=== PATIENT | female | born 1955 | race Caucasian/White ===

== ENCOUNTER 2020-07-06 12:53 | Outpatient (CLI) | payer OTHER, MEDICARE, SELFPAY ==
--- NOTE | 2020-07-06 13:03 | XR_ITS ---
WS: [id number] SCREENING DEXA SCAN [address] [employer] CLINICAL INFORMATION: AGE RELATED OSTEOPOROSIS WITHOUT CURRENT PATHOLOGICAL FRACTU COMPARISON: None. FINDINGS: The L1-L4 bone mineral density measures 1.023 g/cm2. This corresponds to a T score score of -1.3 and Z score of -0.3. Left femoral neck bone mineral density measures 0.868 g/cm2. This corresponds to a T score of -1.1 an d Z score of -0.3. Right femoral neck bone mineral density measures 0.967 g/cm2. This corresponds to a T score -0.3of an d Z score of 0.4. Mean femoral neck bone mineral density measures 0.917 g/cm2. This corresponds to a T score of -0.7 an d Z score of 0.0. XR/XR DEXA peripheral [id number] IMPRESSION: Osteopenia Patient's FRAX calculated 10 year probability for major osteoporotic fracture i s 17.0 % and osteoporotic hip fracture is 2.5%.
--- NOTE | 2020-07-06 13:38 | MM_ITS ---
WS: [id number] BILATERAL SCREENING DIGITAL MAMMOGRAM WITH CAD HISTORY: SCREENING COMPARISON: 08/26/2012 and 06/14/2010 Bilateral CC and MLO views submitted. Computer aided detection analyzed. Breast composition: The breasts are heterogeneously dense, which may obscure small masses. Linear are a of increasing density in the central LEFT breast. No calcifications. No distortion. MM/[place] [id number] IMPRESSION: BI-RADS: 0-Incomplete: Need additional imaging evaluation FOLLOW UP: Need Additional Imaging LEFT breast: Spot compression views (CC and MLO). True ML. Ultrasound to follow if abnormality persists.
== END 2020-07-06 12:54 | disposition home or self-care (01) ==
PROVIDERS: PCP Nurse Practitioner Family; Visit Provider Nurse Practitioner Family
DX: Z12.31 Encounter for screening mammogram for malignant neoplasm of breast (principal); M81.0 Age-related osteoporosis without current pathological fracture; N63.20 Unspecified lump in the left breast, unspecified quadrant; M85.88 Other specified disorders of bone density and structure, other site
CPT/HCPCS: 77067; 77081

== ENCOUNTER 2020-07-27 12:21 | Outpatient (CLI) | payer OTHER, MEDICARE, SELFPAY ==
--- NOTE | 2020-07-27 12:25 | US_ITS ---
WS: [id number] ADDITIONAL VIEWS LEFT MAMMOGRAM LEFT BREAST ULTRASOUND HISTORY: ABNORMAL mammogram COMPARISON: 07/06/2020 and 08/26/2012 LEFT MAMMOGRAM: Spot compression views and true ML. On the CC projection asymmetry resolves. On the lateral projections there is an ovoid nodule measurin g 8 mm central and just above the nipple line. LEFT BREAST ULTRASOUND 2-D and color Doppler imaging submitted. No mass identified by ultrasound. Dense fibroglandular tissue corresponds to the findings on the mamm ogram. US/US breast LT limited* [id number] IMPRESSION: BI-RADS: 2-Benign FOLLOW UP: 1 Year Follow-up
== END 2020-07-27 12:22 | disposition home or self-care (01) ==
LOC: RADSHAW 12:22
PROVIDERS: PCP Nurse Practitioner Family; Visit Provider Nurse Practitioner Family
DX: R92.8 Other abnormal and inconclusive findings on diagnostic imaging of breast (principal)
CPT/HCPCS: 76642; 77065

== ENCOUNTER → 2021-05-24 13:47 | Outpatient (BNVA) | payer OTHER, MEDICARE, SELFPAY | PROVIDERS: PCP Nurse Practitioner Family; Visit Provider Nurse Practitioner Family | DX: J06.9 Acute upper respiratory infection, unspecified (principal) | CPT/HCPCS: 87635 ==

== ENCOUNTER 2021-05-30 09:58 | Outpatient (CLI) | payer OTHER, MEDICARE, SELFPAY ==
[2021-05-30 10:32] VITALS: BP 169/76; PULSE 70; RESP 18; TEMP 36.2; O2SAT 95; BMI 30.7
[2021-05-30 11:16] VITALS: BP 183/78; PULSE 67; RESP 18; TEMP 36.4; O2SAT 95
[2021-05-30 11:43] VITALS: BP 178/80; PULSE 65; RESP 17; TEMP 36.6; O2SAT 95
== END 2021-05-30 09:59 | disposition home or self-care (01) ==
LOC: OPS 10:00
PROVIDERS: PCP Nurse Practitioner Family; Visit Provider Nurse Practitioner Family
DX: U07.1 COVID-19 (principal)
CPT/HCPCS: 96365

== ENCOUNTER 2023-07-08 12:42 | Outpatient (CLI) | payer OTHER, SELFPAY ==
--- NOTE | 2023-07-08 12:50 | CT_ITS ---
WS: [id number] CT SINUSES TECHNIQUE: Noncontrast CT of the paranasal sinuses with coronal and sagittal reformatted images. CLINICAL INFORMATION: CHRONIC SINUSITIS COMPARISON: None. DLP: 354.[address] scans at [facility] use at least one of these dose optimization techniques: automated e xposure control; mA and/or kV adjustment per patient size (includes targeted exams where dose is matc hed to clinical indication); or iterative reconstruction. FINDINGS: Mastoid air cells are well aerated. Mild polypoid mucosal thickening in the paranasal sinuses. Secret ions in the maxillary sinuses and sphenoid sinus compatible with sinusitis. Cavernous carotid calcifi cation. Mucosal thickening in the ethmoid air cells. Polyploid mucosal thickening in the RIGHT maxill ashlie sinus measuring 1.6 cm on the RIGHT and 1.3 cm on the LEFT. Mild mucosal thickening with mild marco rowing of the ostiomeatal units bilaterally. Normal posterior nasopharynx and parapharyngeal fat. Cav ernous carotid calcification. IMPRESSION: 1. Mild LEFT to RIGHT nasal septal deviation measuring 4.3 mm 2. Polyploid mucosal thickening in the paranasal sinuses described above. 3. Frothy secretions in the maxillary sinuses and sphenoid sinus compatible with sinusitis. 4. Mastoid air cells are well aerated. 5. Mild narrowing of the ostiomeatal units bilaterally with mucosal thickening. 6. Cavernous carotid calcification.
== END 2023-07-08 12:43 | disposition home or self-care (01) ==
LOC: RAD 12:43
PROVIDERS: Visit Provider Family Medicine
DX: J32.9 Chronic sinusitis, unspecified (principal); J34.2 Deviated nasal septum
CPT/HCPCS: 70486

== ENCOUNTER 2024-07-26 11:18 | Outpatient (CLI) | payer MEDICARE, SELFPAY ==
--- NOTE | 2024-07-26 11:20 | MM_ITS ---
WS: [id number] Bilateral screening 3D tomosynthesis digital mammogram, 07/26/2024 11:25 AM Clinical Data: SCREENING Comparison: 07/27/2020, 07/06/2020, 08/26/2012, 06/14/2010, 06/28/2008, 06/02/2007, 05/26/2006. Findings: No spiculated masses or clustered calcifications are seen. There are no secondary signs of carcinoma. MM/MM scr BI tomosynthesis [id number] Impression: Negative bilateral mammogram unchanged. Recommend annual screening mammograms. BIRADS: 1 - Negative FOLLOW UP: 1 Year Follow-up DENSITY: The breasts are heterogeneously dense, which may obscure small masses. The CAD ends down checker was used
== END 2024-07-26 11:19 | disposition home or self-care (01) ==
PROVIDERS: PCP Family Medicine; Visit Provider Family Medicine
DX: Z12.31 Encounter for screening mammogram for malignant neoplasm of breast (principal); R92.333 Mammographic heterogeneous density, bilateral breasts
CPT/HCPCS: 77063; 77067